=== PATIENT | female | born 1950 | race Caucasian/White ===

== ENCOUNTER 2016-12-29 12:27 | Emergency (ER) | payer MEDICARE ==
[~2016-12-29] VITALS: Ht 162.6 cm; Wt 61.8 kg
[2016-12-29 12:38] VITALS: BP 111/84; PULSE 67; TEMP 98.6
[2016-12-29] MEDS ORDERED: NORCO 325 MG-51 TAB PO (15:06)
== END 2016-12-29 15:24 | disposition home or self-care (01) ==
LOC: COL.ER 12:27
DX: S20.212A Contusion of left front wall of thorax, initial encounter (principal); W01.198A Fall on same level from slipping, tripping and stumbling with subsequent striking against other object, initial encounter; Y92.002 Bathroom of unspecified non-institutional (private) residence as the place of occurrence of the external cause